=== PATIENT | male | born 1975 | race Caucasian/White ===

== ENCOUNTER 2019-04-27 11:42 | Day surgery (SDC) | payer OTHER ==
[2019-04-24 15:43] VITALS: BMI 31.1
[2019-04-27] MEDS ORDERED: MIDAZOLAM HCL 2 MG/2 ML SINGLE DOSE VIAL ONE ×2 (12:42→13:08)
[2019-04-27] MEDS ORDERED: ROPIVACAINE HCL 0.5% 30ML VIAL ONE (12:42)
[2019-04-27] MEDS ORDERED: PROPOFOL 20 ML ONE ×3 (13:08→15:16)
[2019-04-27] MEDS ORDERED: ceFAZolin SODIUM 1 GM VIAL ONE (13:30)
[2019-04-27 16:51] VITALS: BP 130/84; PULSE 61
[2019-04-27 18:19] VITALS: TEMP 98
--- NOTE | 2019-04-27 19:19 | OP ---
DATE OF OPERATION: 04/27/2019 PREOPERATIVE DIAGNOSIS: Torn right shoulder rotator cuff. POSTOPERATIVE DIAGNOSIS: 1. Adhesive capsulitis with frozen right shoulder. 2. Extensive joint debris. 3. Tearing of the rotator cuff. 4. Glenoid labral tear. 5. Impingement from the acromion. PROCEDURES PERFORMED: 1. Arthroscopy of the right shoulder with manipulation of the right shoulder under anesthesia with lysis and resection of adhesions. 2. Resection of extensive joint debridement. 3. Debridement of rotator cuff. 4. Partial glenoid labral resection. 6. Acromioplasty for impingement. SURGEON: Robert Li MD [employer] [facility]: [facility] ANESTHESIA: Kris Mckeon MD, interscalene regional block was performed. DESCRIPTION OF PROCEDURE: The procedure consisted of the patient being brought in the operating room and gently transferred from the stretcher to the OR table with all bony prominences well padded. The right shoulder was prepared and draped in a sterile fashion. The patient was given intravenous antibiotics with copious irrigation throughout the procedure to minimize risk of infection. A complete risk, benefit, alternative discussion was conducted with the patient, which was inclusive of, but not limited to, infection, bleeding, , paralysis, increased pain, need for repeat surgery. Patient asked questions, understood the procedure, and desired to proceed with the surgical treatment. Following sterile preparation and draping of the right shoulder, the patient had been placed in the right side up lateral decubitus position. An appropriate time- out had been conducted, which was inclusive of, but not limited to, type of surgery, site of surgery, surgeon, and anesthesiologist. The patient had been placed on a pneumatic patient support, which contoured to the patient. A pillow was placed below the legs and a pillow between the legs to protect the neurovascular structures of the legs. An axillary roll was placed to protect the lower shoulder. The neck was maintained in good alignment throughout the procedure by the anesthesiologist, and the face was protected by the anesthesiologist throughout the procedure. Following sterile preparation and draping of the patient and positioning, gentle manipulation had been conducted with initially 100 degrees of abduction, 100 degrees of flexion, extension 10 degrees, internal rotation 70 degrees, external rotation 10 degrees. Following manipulation, 160 degrees of abduction, flexion to 160 degrees, extension 30 degrees, internal rotation 90 degrees, external rotation 25 degrees was obtained. The anterior, posterior, lateral portals were used to introduce the arthroscope and arthroscopic instruments. The anterior portal had been fabricated with the inside-out method over a transfer valentina to minimize risk for anterior neurovascular structures. The glenohumeral joint was evaluated. There was noted to be extensive joint debris and adhesions within the joint, which were lysed and resected. The anterior and posterior recesses were without plica or loose body. The middle glenohumeral ligament was found to be intact as was the biceps tendon. The rotator cuff was found to have a tear, which was probed. The glenoid labrum was found to have a tear. This was debrided using shaver and radiofrequency wand, and a partial glenoid labral resection was performed. There was noted to be inflamed synovial tissue, and an extensive partial synovectomy was performed as well. Our attention was turned to the subacromial space. Marker placed over the rotator cuff. The rotator cuff was evaluated, and there was noted to be a tear near the insertion at the junction of the articular cartilage and the bone of the humeral head. This was grasped, and a suture was placed; however, the tissue was noted to be too friable to allow seating and stabilization of the tissues. Numerous attempts were made to try to grasp the friable tissue; however, sutures were all found to pull through. There was noted to be impingement as well, and this was debrided using a shaver and radiofrequency wand. A high-speed bur and shaver was used to resect a wedge of bone thick anteriorly, thin posteriorly. Inflamed bursal tissue was also resected. Due to the swelling of the tissues, rather than continue with trying to place the sutures and the soft tissues, which were very friable, the attempts were discontinued. The shoulder joint was then copiously irrigated. The wounds were closed with 4-0 Prolene followed by Steri-Strips, Xeroform, 4 x 4's, Combine, Elastoplast, and a shoulder immobilizer. The patient was then gently awoken from anesthesia without incident and transferred from the operating room to the recovery room in satisfactory condition. There were no intraoperative complications. Sherwin [id number] [facility]
== END 2019-04-27 17:35 | disposition home or self-care (01) ==
LOC: FASU 11:42
PROVIDERS: ATTEND Orthopaedic Surgery
PROC: 0LQ14ZZ Repair Right Shoulder Tendon, Percutaneous Endoscopic Approach (ICD-10-PCS; 2019-04-27)
PROC: 0RQJ4ZZ Repair Right Shoulder Joint, Percutaneous Endoscopic Approach (ICD-10-PCS; 2019-04-27)
PROC: 0RBJ4ZZ Excision of Right Shoulder Joint, Percutaneous Endoscopic Approach (ICD-10-PCS; principal; 2019-04-27 13:36)
DX: M75.101 Unspecified rotator cuff tear or rupture of right shoulder, not specified as traumatic (principal); M75.01 Adhesive capsulitis of right shoulder; M24.111 Other articular cartilage disorders, right shoulder; M25.811 Other specified joint disorders, right shoulder
CPT/HCPCS: 94760